=== PATIENT | male | born 1980 | race Caucasian/White ===

== ENCOUNTER 2017-09-27 19:01 | Emergency (ER) | payer OTHER ==
[~2017-09-27] VITALS: Ht 182.9 cm; Wt 79.5 kg
[2017-09-27 19:38] LABS: HEMATOCRIT 44.8 % (38.0-50.0); MCH 26.5 PG (29.0-34.0); MCHC 33.3 G/DL (30.0-36.0); MCV 79.6 FL (86-99); MEAN PLAT.VOLUME 8.7 uM^3 (9.0-12.4); PLATELET COUNT 322 K/uL (156-360); RBC DIS.WIDTH-CV 14.9 % (11.8-14.6); RED BLOOD COUNT 5.63 M/uL (4.00-5.50); WHITE BLOOD COUNT 14.6 K/uL (4.1-10.2)
[2017-09-27 19:54] LABS: CHLORIDE 108 mEq/L (99-109); POTASSIUM 3.9 mEq/L (3.7-5.4); SODIUM 138 mEq/L (136-147)
[2017-09-27 19:55] LABS: GLUCOSE 101 mg/dL (70-99)
[2017-09-27 19:57] LABS: ANION GAP 7 MEQ/L (2-14)
[2017-09-27 19:59] LABS: GFR ESTIMATE (CALCULATED) > 59 mL/min/
[2017-09-27 20:00] LABS: TROP-I INTERPRETATION NEGATIVE; TROPONIN-I < 0.01 ng/mL (0.0-0.30); UREA NITROGEN (BUN) 11 mg/dL (9-23)
[2017-09-27 20:10] LABS: D-DIMER ELISA < 150.00 ng/mLDDU (<230)
[2017-09-27] MEDS ORDERED: PREDNISONE20 MG PO (21:57)
[2017-09-27] MEDS ORDERED: VENTOLIN HFA18 GM IH (21:57)
[2017-09-27] MEDS ORDERED: INDOCIN50 MG PO (21:57)
[2017-09-27 22:11] VITALS: BP 137/81
== END 2017-09-27 22:21 | disposition home or self-care (01) ==
LOC: EME 19:01
PROVIDERS: Physician Assistant
DX: R09.1 Pleurisy (principal); J45.909 Unspecified asthma, uncomplicated; Z87.891 Personal history of nicotine dependence
CPT/HCPCS: 71020; 80048; 84484; 85027; 85379; 93005; 94640; 99281; 99284; J1885; J7512